=== PATIENT | male | born 1955 | race Caucasian/White ===

== ENCOUNTER 2021-08-02 09:55 | Emergency (ER) | payer MEDICARE, OTHER ==
[2021-08-02 10:09] VITALS: BP 128/74
[2021-08-02] MEDS ORDERED: ACETAMINOPHEN/CODEINE 300-30 MG TABLET PO ONE (10:15)
[2021-08-02] MEDS ORDERED: LIDOCAINE 2% VISCOUS 15 ML SOLUTION UDCUP PO ONE (10:15)
[2021-08-02 10:32] LABS: BASOPHILS % (AUTO) 1.1 % (0.0-2.0); EOSINOPHILS % (AUTO) 2.5 % (1.0-6.0); HEMATOCRIT 43.3 % (41-53); HEMOGLOBIN 14.5 g/dL (13.5-17.5); LYMPHOCYTES # (AUTO) 0.9 K/uL (1.0-4.8); LYMPHOCYTES % (AUTO) 13.5 % (22.0-44.0); MEAN CORPUSCULAR HEMOGLOBIN 30.4 pg (26.0-34.0); MEAN CORPUSCULAR HGB CONC 33.6 G/dL (31.0-37.0); MEAN CORPUSCULAR VOLUME 90 fL (80-100); MONOCYTES # (AUTO) 0.5 K/uL (0.1-1.0); MONOCYTES % (AUTO) 7.3 % (2.0-9.0); NEUTROPHILS # (AUTO) 5.1 K/uL (1.8-7.7); NEUTROPHILS % (AUTO) 75.6 % (40.0-70.0); PLATELET COUNT (AUTO) 206 K/uL (150-450); RED BLOOD CELL COUNT(AUTO) 4.78 MIL/uL (4.50-5.90); RED CELL DISTRIBUTION WIDTH 14.9 % (11.5-14.5)
[2021-08-02 10:45] LABS: CALCIUM, TOTAL 8.8 mg/dL (8.8-10.5); CREATININE 1.34 mg/dL (0.60-1.30); POTASSIUM 4.5 mmol/L (3.5-5.1)
[2021-08-02 10:51] LABS: ALBUMIN 3.3 g/dL (3.4-5.0); BILIRUBIN,TOTAL 0.6 mg/dL (0.1-1.0); TOTAL PROTEIN, SERUM 7.5 g/dL (6.4-8.2)
[2021-08-02 11:12] LABS: COVID AG,FIA SOURCE NASOPHARYNGEAL
[2021-08-02 12:30] LABS: INFLUENZA TYPE A NEGATIVE FOR TYPE A (NEGATIVE); INFLUENZA TYPE B NEGATIVE FOR TYPE B (NEGATIVE)
[2021-08-02] MEDS ORDERED: GUAIFDM PO (12:51)
[2021-08-02] MEDS ORDERED: ACET-2080 PO (12:51)
[2021-08-02] MEDS ORDERED: IBUP-1554 PO (12:51)
== END 2021-08-02 21:21 | disposition home or self-care (01) ==
LOC: EMS 09:55
DX: J02.9 Acute pharyngitis, unspecified (principal); I10 Essential (primary) hypertension; Z20.822 Contact with and (suspected) exposure to COVID-19
CPT/HCPCS: 71045; 80053; 84484; 85025; 87804; 93005; 99285; 36415-L1; 36415-TC

== ENCOUNTER 2021-08-12 10:12 | Emergency (ER) | payer MEDICARE, OTHER ==
[~2021-08-12] VITALS: Ht 185.4 cm; Wt 84.1 kg
[~2021-08-12 10:12] MED LIST: ACET-2080 PO; GUAIFDM PO; IBUP-1554 PO
[2021-08-12 10:42] VITALS: BP 108/74
[2021-08-12] MEDS ORDERED: PB/HYOSCY/ATR/SCOP/LIDO/MAALOX 55 ML BOTTLE PO ONE (10:45)
[2021-08-12] MEDS ORDERED: FAMOTIDINE 20 MG TABLET PO ONE (10:45)
[2021-08-12] MEDS ORDERED: FAMO20 PO (11:01)
== END 2021-08-12 11:59 | disposition home or self-care (01) ==
LOC: EMS 10:13
DX: K21.9 Gastro-esophageal reflux disease without esophagitis (principal); J02.9 Acute pharyngitis, unspecified; I10 Essential (primary) hypertension; Z93.3 Colostomy status; Z86.16 Personal history of COVID-19
CPT/HCPCS: 99283

== ENCOUNTER 2021-08-19 21:35 | Emergency (ER) | payer MEDICARE, OTHER ==
[~2021-08-19] VITALS: Ht 185.4 cm; Wt 86.4 kg
[~2021-08-19 21:35] MED LIST changes: +FAMO20 PO
[2021-08-20 06:42] VITALS: BP 135/79
== END 2021-08-20 06:59 | disposition home or self-care (01) ==
LOC: EMS 21:35
DX: F10.129 Alcohol abuse with intoxication, unspecified (principal); I10 Essential (primary) hypertension; Z86.718 Personal history of other venous thrombosis and embolism
CPT/HCPCS: 99285; Z7502

== ENCOUNTER 2021-09-01 07:20 | Emergency (ER) | payer MEDICARE, OTHER ==
[~2021-09-01] VITALS: Ht 185.4 cm; Wt 81.8 kg
[2021-09-01 07:34] VITALS: BP 120/73
[2021-09-01] MEDS ORDERED: HYDR30CR39 TP (08:15)
[2021-09-01] MEDS ORDERED: DIPH25CA85 PO (08:15)
== END 2021-09-01 09:04 | disposition home or self-care (01) ==
LOC: EMS 07:22
DX: R21 Rash and other nonspecific skin eruption (principal); I10 Essential (primary) hypertension; Z98.890 Other specified postprocedural states; Z86.718 Personal history of other venous thrombosis and embolism
CPT/HCPCS: 99283